=== PATIENT | male | born 1940 | race Caucasian/White ===

== ENCOUNTER 2017-06-06 13:25 | Inpatient (IN) ==
[2017-06-06] MEDS ORDERED: LACTULOSE 20 GM/30 ML UDCUP PO PRN (17:49)
[2017-06-06] MEDS: ALBUTEROL/IPRATROPIUM 3 ML NEB RESP TX SCH (19:30)
[2017-06-06] MEDS ORDERED: LACTOBACILLUS ACIDOPHILUS PO SCH (21:00)
[2017-06-06] MEDS ORDERED: [UNRECOGNIZED DRUG - OTHER] PO SCH (21:00)
[2017-06-06] MEDS: FLUTICASONE 220 MCG/PUFF INHALER 12 GM INH SCH (21:31)
[2017-06-06] MEDS: metroNIDAZOLE 500 MG TABLET PO SCH (21:31)
[2017-06-06] MEDS: METOPROLOL TARTRATE 50 MG TABLET PO SCH (21:31)
[2017-06-06] MEDS: BENZONATATE 100 MG CAPSULE PO SCH (21:31)
[2017-06-07] MEDS: ALBUTEROL/IPRATROPIUM 3 ML NEB RESP TX SCH ×4 (00:18→20:36)
[2017-06-07] MEDS: FLUTICASONE 220 MCG/PUFF INHALER 12 GM INH SCH ×2 (10:23→20:39)
[2017-06-07] MEDS: amLODIPine 5 MG TABLET PO SCH (10:24)
[2017-06-07] MEDS: METOPROLOL TARTRATE 50 MG TABLET PO SCH ×2 (10:24→20:39)
[2017-06-07] MEDS: metroNIDAZOLE 500 MG TABLET PO SCH ×3 (10:24→20:39)
[2017-06-07] MEDS: SULFAMETHOX/TRIMETHOPRIM 800-160 MG TABLET PO SCH (10:24)
[2017-06-07] MEDS: BENZONATATE 100 MG CAPSULE PO SCH ×3 (10:24→20:40)
[2017-06-07] MEDS: CLOPIDOGREL 75 MG TABLET PO SCH (10:24)
[2017-06-07] MEDS: predniSONE 5 MG TABLET PO SCH (10:24)
[2017-06-07] MEDS: ESCITALOPRAM 10 MG TABLET PO SCH (10:25)
[2017-06-07] MEDS: ZALEPLON 5 MG CAPSULE PO PRN (20:39)
[2017-06-08] MEDS: ALBUTEROL/IPRATROPIUM 3 ML NEB RESP TX SCH ×4 (01:53→19:28)
[2017-06-08 06:50] LABS: Basophils % 0.7 % (0.0-0.8); Eosinophils # 0.2 10*3/uL (0.0-0.87); Eosinophils % 3.5 % (0.00-10.9); Hematocrit 30.6 VOL% (42.0-52.0); Hemoglobin 9.7 GM/DL (14.0-18.0); Immature Granulocytes % 0.7 %; Immature Granulocytes Absolute 0.04 #; Lymphocytes # 1.9 10*3/uL (1.4-4.0); Lymphocytes % 32.8 % (21.2-54.2); Mean Corpuscular HGB Conc 31.7 GM/DL (32-36); Mean Corpuscular Hemoglobin 26 PG (27-34); Mean Corpuscular Volume 80.7 FL (87-102); Mean Platelet Volume 8.2 FL (9.6-12.0); Monocytes # 1.1 10*3/uL (0.11-0.8); Monocytes % 19.5 % (1.7-12.7); Neutrophils # 2.4 10*3/uL (1.4-7.4); Neutrophils % 42.8 % (38.7-73.9); Platelet Count 381 T/CUMM (130-400); Red Blood Count 3.79 MC/CUMM (3.8-5.5); Red Cell Distribution Width 23.5 % (9.3-17.3); White Blood Count 5.7 T/CUMM (4-12)
[2017-06-08 07:19] LABS: Calcium 8.4 MG/DL (8.5-10.1); Eosinophils 5 % (0-10); Hypochromasia 1+; Lymphocytes 29 % (20-55); Microcytosis 1+; Potassium 3.8 MMOL/L (3.5-5.1); Segmented Neutrophils 53 % (50-85); Total Cells Counted 100
[2017-06-08] MEDS: CLOPIDOGREL 75 MG TABLET PO SCH (09:17)
[2017-06-08] MEDS: SULFAMETHOX/TRIMETHOPRIM 800-160 MG TABLET PO SCH (09:17)
[2017-06-08] MEDS: amLODIPine 5 MG TABLET PO SCH (09:17)
[2017-06-08] MEDS: predniSONE 5 MG TABLET PO SCH (09:17)
[2017-06-08] MEDS: BENZONATATE 100 MG CAPSULE PO SCH ×3 (09:18→21:27)
[2017-06-08] MEDS: ESCITALOPRAM 10 MG TABLET PO SCH (09:18)
[2017-06-08] MEDS: METOPROLOL TARTRATE 50 MG TABLET PO SCH ×2 (09:18→21:27)
[2017-06-08] MEDS: metroNIDAZOLE 500 MG TABLET PO SCH ×3 (09:18→21:27)
[2017-06-08] MEDS: FLUTICASONE 220 MCG/PUFF INHALER 12 GM INH SCH ×2 (09:23→21:27)
[2017-06-08] MEDS: LACTOBACILLUS ACIDOPHILUS/BULGARICUS CAPLET PO SCH ×3 (10:10→21:26)
[2017-06-08] MEDS: ACETAMINOPHEN/CODEINE 300-30 MG TABLET PO PRN (19:41)
[2017-06-08] MEDS: ZALEPLON 5 MG CAPSULE PO PRN (21:27)
[2017-06-09] MEDS: ALBUTEROL/IPRATROPIUM 3 ML NEB RESP TX SCH ×4 (00:15→20:11)
[2017-06-09] MEDS: CLOPIDOGREL 75 MG TABLET PO SCH (09:30)
[2017-06-09] MEDS: METOPROLOL TARTRATE 50 MG TABLET PO SCH ×2 (09:30→21:55)
[2017-06-09] MEDS: SULFAMETHOX/TRIMETHOPRIM 800-160 MG TABLET PO SCH (09:30)
[2017-06-09] MEDS: ESCITALOPRAM 10 MG TABLET PO SCH (09:30)
[2017-06-09] MEDS: metroNIDAZOLE 500 MG TABLET PO SCH ×3 (09:31→21:55)
[2017-06-09] MEDS: LACTOBACILLUS ACIDOPHILUS/BULGARICUS CAPLET PO SCH ×3 (09:31→21:55)
[2017-06-09] MEDS: BENZONATATE 100 MG CAPSULE PO SCH ×3 (09:31→21:55)
[2017-06-09] MEDS: amLODIPine 5 MG TABLET PO SCH (09:31)
[2017-06-09] MEDS: predniSONE 5 MG TABLET PO SCH (09:31)
[2017-06-09] MEDS: FLUTICASONE 220 MCG/PUFF INHALER 12 GM INH SCH ×2 (09:35→22:03)
[2017-06-09] MEDS: ZALEPLON 5 MG CAPSULE PO PRN (21:55)
[2017-06-09] MEDS: ACETAMINOPHEN/CODEINE 300-30 MG TABLET PO PRN (21:55)
[2017-06-10] MEDS: ALBUTEROL/IPRATROPIUM 3 ML NEB RESP TX SCH ×4 (00:15→20:01)
[2017-06-10] MEDS: predniSONE 5 MG TABLET PO SCH (09:36)
[2017-06-10] MEDS: SULFAMETHOX/TRIMETHOPRIM 800-160 MG TABLET PO SCH (09:36)
[2017-06-10] MEDS: BENZONATATE 100 MG CAPSULE PO SCH ×3 (09:36→21:44)
[2017-06-10] MEDS: ESCITALOPRAM 10 MG TABLET PO SCH (09:36)
[2017-06-10] MEDS: metroNIDAZOLE 500 MG TABLET PO SCH ×3 (09:36→21:43)
[2017-06-10] MEDS: LACTOBACILLUS ACIDOPHILUS/BULGARICUS CAPLET PO SCH ×3 (09:36→21:44)
[2017-06-10] MEDS: CLOPIDOGREL 75 MG TABLET PO SCH (09:36)
[2017-06-10] MEDS: FLUTICASONE 220 MCG/PUFF INHALER 12 GM INH SCH ×2 (09:37→21:45)
[2017-06-10] MEDS: METOPROLOL TARTRATE 50 MG TABLET PO SCH ×2 (09:37→21:44)
[2017-06-10] MEDS: amLODIPine 5 MG TABLET PO SCH (11:22)
[2017-06-10] MEDS: ACETAMINOPHEN/CODEINE 300-30 MG TABLET PO PRN (19:31)
[2017-06-11] MEDS: ALBUTEROL/IPRATROPIUM 3 ML NEB RESP TX SCH ×4 (01:20→20:57)
[2017-06-11] MEDS: metroNIDAZOLE 500 MG TABLET PO SCH ×3 (09:33→20:19)
[2017-06-11] MEDS: LACTOBACILLUS ACIDOPHILUS/BULGARICUS CAPLET PO SCH ×3 (09:33→20:19)
[2017-06-11] MEDS: SULFAMETHOX/TRIMETHOPRIM 800-160 MG TABLET PO SCH (09:33)
[2017-06-11] MEDS: FLUTICASONE 220 MCG/PUFF INHALER 12 GM INH SCH ×2 (09:33→21:46)
[2017-06-11] MEDS: METOPROLOL TARTRATE 50 MG TABLET PO SCH ×2 (09:34→20:20)
[2017-06-11] MEDS: CLOPIDOGREL 75 MG TABLET PO SCH (09:34)
[2017-06-11] MEDS: ESCITALOPRAM 10 MG TABLET PO SCH (09:34)
[2017-06-11] MEDS: BENZONATATE 100 MG CAPSULE PO SCH ×3 (09:35→20:19)
[2017-06-11] MEDS: predniSONE 5 MG TABLET PO SCH (09:35)
[2017-06-11] MEDS: amLODIPine 5 MG TABLET PO SCH (09:41)
[2017-06-11] MEDS: ACETAMINOPHEN/CODEINE 300-30 MG TABLET PO PRN (16:32)
[2017-06-11] MEDS: ZALEPLON 5 MG CAPSULE PO PRN (20:19)
[2017-06-12] MEDS: ACETAMINOPHEN/CODEINE 300-30 MG TABLET PO PRN (00:07)
[2017-06-12] MEDS: ALBUTEROL/IPRATROPIUM 3 ML NEB RESP TX SCH ×4 (02:31→19:49)
[2017-06-12] MEDS: LACTOBACILLUS ACIDOPHILUS/BULGARICUS CAPLET PO SCH ×3 (08:48→20:33)
[2017-06-12] MEDS: FLUTICASONE 220 MCG/PUFF INHALER 12 GM INH SCH ×2 (08:49→20:36)
[2017-06-12] MEDS: ESCITALOPRAM 10 MG TABLET PO SCH (08:49)
[2017-06-12] MEDS: metroNIDAZOLE 500 MG TABLET PO SCH ×3 (08:49→20:33)
[2017-06-12] MEDS: SULFAMETHOX/TRIMETHOPRIM 800-160 MG TABLET PO SCH (08:49)
[2017-06-12] MEDS: CLOPIDOGREL 75 MG TABLET PO SCH (08:50)
[2017-06-12] MEDS: predniSONE 5 MG TABLET PO SCH (08:50)
[2017-06-12] MEDS: METOPROLOL TARTRATE 50 MG TABLET PO SCH ×2 (08:50→20:33)
[2017-06-12] MEDS: amLODIPine 5 MG TABLET PO SCH (08:50)
[2017-06-12] MEDS: BENZONATATE 100 MG CAPSULE PO SCH ×3 (08:51→20:33)
[2017-06-12] MEDS: ZALEPLON 5 MG CAPSULE PO PRN (20:32)
[2017-06-13] MEDS: ALBUTEROL/IPRATROPIUM 3 ML NEB RESP TX SCH ×4 (01:06→20:00)
[2017-06-13] MEDS: LACTOBACILLUS ACIDOPHILUS/BULGARICUS CAPLET PO SCH ×3 (09:05→21:26)
[2017-06-13] MEDS: SULFAMETHOX/TRIMETHOPRIM 800-160 MG TABLET PO SCH (09:05)
[2017-06-13] MEDS: amLODIPine 5 MG TABLET PO SCH (09:06)
[2017-06-13] MEDS: metroNIDAZOLE 500 MG TABLET PO SCH ×3 (09:06→21:27)
[2017-06-13] MEDS: FLUTICASONE 220 MCG/PUFF INHALER 12 GM INH SCH ×2 (09:06→21:29)
[2017-06-13] MEDS: METOPROLOL TARTRATE 50 MG TABLET PO SCH ×2 (09:06→21:27)
[2017-06-13] MEDS: ESCITALOPRAM 10 MG TABLET PO SCH (09:06)
[2017-06-13] MEDS: CLOPIDOGREL 75 MG TABLET PO SCH (09:07)
[2017-06-13] MEDS: BENZONATATE 100 MG CAPSULE PO SCH ×3 (09:07→21:25)
[2017-06-13] MEDS: predniSONE 5 MG TABLET PO SCH (09:07)
[2017-06-13] MEDS: ACETAMINOPHEN/CODEINE 300-30 MG TABLET PO PRN (19:04)
[2017-06-13] MEDS: ZALEPLON 5 MG CAPSULE PO PRN ×2 (21:26→23:06)
[2017-06-14] MEDS: ALBUTEROL/IPRATROPIUM 3 ML NEB RESP TX SCH ×4 (00:29→19:54)
[2017-06-14] MEDS: CLOPIDOGREL 75 MG TABLET PO SCH (08:40)
[2017-06-14] MEDS: METOPROLOL TARTRATE 50 MG TABLET PO SCH ×2 (08:40→20:42)
[2017-06-14] MEDS: metroNIDAZOLE 500 MG TABLET PO SCH ×3 (08:41→20:42)
[2017-06-14] MEDS: amLODIPine 5 MG TABLET PO SCH (08:41)
[2017-06-14] MEDS: SULFAMETHOX/TRIMETHOPRIM 800-160 MG TABLET PO SCH (08:41)
[2017-06-14] MEDS: predniSONE 5 MG TABLET PO SCH (08:41)
[2017-06-14] MEDS: BENZONATATE 100 MG CAPSULE PO SCH ×3 (08:41→20:42)
[2017-06-14] MEDS: ESCITALOPRAM 10 MG TABLET PO SCH (08:41)
[2017-06-14] MEDS: LACTOBACILLUS ACIDOPHILUS/BULGARICUS CAPLET PO SCH ×3 (08:43→20:42)
[2017-06-14] MEDS: FLUTICASONE 220 MCG/PUFF INHALER 12 GM INH SCH ×2 (08:45→20:44)
[2017-06-15] MEDS: ALBUTEROL/IPRATROPIUM 3 ML NEB RESP TX SCH ×3 (00:49→12:40)
[2017-06-15] MEDS: CLOPIDOGREL 75 MG TABLET PO SCH (08:32)
[2017-06-15] MEDS: amLODIPine 5 MG TABLET PO SCH (08:32)
[2017-06-15] MEDS: metroNIDAZOLE 500 MG TABLET PO SCH ×2 (08:32→14:51)
[2017-06-15] MEDS: METOPROLOL TARTRATE 50 MG TABLET PO SCH (08:32)
[2017-06-15] MEDS: LACTOBACILLUS ACIDOPHILUS/BULGARICUS CAPLET PO SCH ×2 (08:32→14:51)
[2017-06-15] MEDS: SULFAMETHOX/TRIMETHOPRIM 800-160 MG TABLET PO SCH (08:32)
[2017-06-15] MEDS: FLUTICASONE 220 MCG/PUFF INHALER 12 GM INH SCH (08:32)
[2017-06-15] MEDS: predniSONE 5 MG TABLET PO SCH (08:32)
[2017-06-15] MEDS: BENZONATATE 100 MG CAPSULE PO SCH ×2 (08:32→14:51)
[2017-06-15] MEDS: ESCITALOPRAM 10 MG TABLET PO SCH (08:32)
[2017-06-15 11:46] VITALS: BP 106/62
== END 2017-06-15 15:27 | DRG 200 ==
LOC: N.2E
PROVIDERS: ADMIT Internal Medicine Pulmonary Disease; ATTEND Internal Medicine Pulmonary Disease
PROC: IRGDHTC (2017-06-09 13:20)